=== PATIENT | male | born 1950 | race Caucasian/White ===

== ENCOUNTER 2017-02-26 08:08 | Inpatient (IN) | payer OTHER ==
[~2017-02-26] VITALS: Ht 177.8 cm; Wt 82.6 kg
[~2017-02-26 08:08] MED LIST: OXYC20TA42 PO; OXYC5TAB3 PO; POLY17PO5 PO
[2017-02-26] MEDS ORDERED: SODIUM CHLORIDE 0.9% 1,000 ML IV ONE ×2 (09:38→12:32)
[2017-02-26] MEDS ORDERED: cholesterol med (09:57)
[2017-02-26] MEDS ORDERED: b/p med (09:57)
[2017-02-26] MEDS ORDERED: anti depressant (09:57)
[2017-02-26] MEDS ORDERED: SODIUM CHLORIDE 0.9% 1,000ML IVBOLUS ONE ×2 (10:00→12:30)
[2017-02-26] MEDS ORDERED: SODIUM CHLORIDE FLUSH 10ML SYR IVF ONE (10:00)
[2017-02-26 10:04] LABS: HEMATOCRIT 42.2 % (39.2-51.8); HEMOGLOBIN 14.4 g/dL (13.7-18.0); WHITE BLOOD COUNT 7.8 x10^3/uL (3.4-10)
[2017-02-26 10:16] LABS: ASPARTATE AMINO TRANSFERASE 12 U/L (15-37); BLOOD UREA NITROGEN 37 mg/dL (7-18)
[2017-02-26 10:22] LABS: IS PT STATUS REG ER OR PRE ER? YES
[2017-02-26] MEDS ORDERED: SODIUM CHLORIDE FLUSH 10ML SYR IVF PRN (13:00)
[2017-02-26] MEDS ORDERED: LABETALOL 5MG/ML, 20ML IVPush PRN (14:00)
[2017-02-26] MEDS ORDERED: HYDROcodone/APAP 5/325 TABLET PO PRN (14:00)
[2017-02-26] MEDS ORDERED: hydrALAzine 20 MG/ML, 1ML IVPush PRN (14:00)
[2017-02-26] MEDS ORDERED: DOCUSATE 100 MG CAPSULE PO PRN (14:00)
[2017-02-26] MEDS ORDERED: POLYETHYLENE GLYCOL 17 GM PACKET PO PRN (14:00)
[2017-02-26] MEDS ORDERED: ACETAMINOPHEN 325 MG TABLET PO PRN (14:00)
[2017-02-26] MEDS ORDERED: ONDANSETRON 2MG/ML, 2ML IVPush PRN (14:00)
[2017-02-26] MEDS ORDERED: BISACODYL 10 MG SUPP PR PRN (14:00)
[2017-02-26 15:19] VITALS: BP 101/63
[2017-02-26] MEDS ORDERED: DILT120C75 PO (16:13)
[2017-02-26] MEDS ORDERED: METO-99 PO (16:13)
[2017-02-26] MEDS ORDERED: ESCI10TA10 PO (16:13)
[2017-02-26] MEDS ORDERED: BENA1TAB10 PO (16:13)
[2017-02-26] MEDS ORDERED: LOVA20TA2 PO (16:13)
[2017-02-26] MEDS: SODIUM CHLORIDE 0.9% 1,000 ML IV SCH (16:43)
[2017-02-26] MEDS: HEPARIN 5,000 UNITS/ML, 1ML SQ SCH (16:43)
[2017-02-26 17:59] VITALS: BP 94/56
[2017-02-26 20:10] VITALS: BP 94/60
[2017-02-26 20:15] VITALS: BP_SYST 74; BP_SYST 85; BP_SYST 91; BP_DIAS 52; BP_DIAS 55; BP_DIAS 58
[2017-02-27] MEDS: HEPARIN 5,000 UNITS/ML, 1ML SQ SCH ×2 (00:30→08:57)
[2017-02-27] MEDS: SODIUM CHLORIDE 0.9% 1,000 ML IV SCH ×2 (02:07→11:30)
[2017-02-27 02:08] VITALS: BP 112/68
[2017-02-27 06:13] LABS: HEMATOCRIT 36.5 % (39.2-51.8); HEMOGLOBIN 12.3 g/dL (13.7-18.0); WHITE BLOOD COUNT 5.8 x10^3/uL (3.4-10)
[2017-02-27 06:24] LABS: ASPARTATE AMINO TRANSFERASE 5 U/L (15-37); BLOOD UREA NITROGEN 33 mg/dL (7-18)
[2017-02-27 08:30] VITALS: BP 106/70
[2017-02-27 08:31] VITALS: BP 105/72
[2017-02-27 08:33] VITALS: BP 100/63
== END 2017-02-27 16:08 | disposition home or self-care (01) | DRG 309 ==
LOC: ED 10:22 → EDIP 12:32 → 5SO 15:07
PROVIDERS: ADMIT Family Medicine; ATTEND Family Medicine
DX: R00.1 Bradycardia, unspecified (principal); N17.9 Acute kidney failure, unspecified; D75.89 Other specified diseases of blood and blood-forming organs; I65.23 Occlusion and stenosis of bilateral carotid arteries; E78.5 Hyperlipidemia, unspecified; F10.21 Alcohol dependence, in remission; I10 Essential (primary) hypertension; I70.0 Atherosclerosis of aorta; Z85.47 Personal history of malignant neoplasm of testis; Z91.81 History of falling; Z92.21 Personal history of antineoplastic chemotherapy
CPT/HCPCS: 36415; 70450; 71010; 76770; 80053; 80061; 81001; 82550; 82607; 82746; 83735; 84100; 84443; 84484; 85025; 87086; 93005; 93306; 93880; 96360; 96361; J1644; J7030